=== PATIENT | male | born 1980 | race Caucasian/White ===

== ENCOUNTER 2017-05-11 17:38 | Emergency (ER) | payer SELFPAY ==
[~2017-05-11] VITALS: Ht 170.2 cm; Wt 99.1 kg
[2017-05-11 18:07] VITALS: BP 118/69
[2017-05-11] MEDS ORDERED: IBUPROFEN 600 MG TAB PO STA (18:12)
[2017-05-11] MEDS ORDERED: ACETAMINOPHEN EXTRA STRENGTH 500 MG TAB PO STA (18:12)
[2017-05-11 19:11] LABS: APPEARANCE,URINE CLEAR (CLEAR); BILIRUBIN,URINE NEGATIVE (NEGATIVE); BLOOD, URINE NEGATIVE (NEGATIVE); COLOR,URINE YELLOW (YELLOW); LEUKOCYTE ESTERASE ,URINE NEGATIVE (NEGATIVE); NITRITE, URINE NEGATIVE (NEGATIVE); UGLUCOSE NEGATIVE (NEGATIVE)
[2017-05-11 19:35] LABS: BASOPHILS # (AUTO) 0.1 K/uL (0.00-0.22); BASOPHILS % (AUTO) 0.8 % (0.0-2.0); EOSINOPHILS # (AUTO) 0.2 K/uL (0-0.4); EOSINOPHILS % (AUTO) 1.8 % (0.0-4.0); HEMATOCRIT 46.3 % (36-52); HEMOGLOBIN 15.7 g/dL (12.0-18.0); LYMPHOCYTES # (AUTO) 1.2 K/uL (2.0-11.5); LYMPHOCYTES % (AUTO) 9.1 % (20.5-51.1); MEAN CORPUSCULAR HEMOGLOBIN 29 pg (27-31); MEAN CORPUSCULAR HGB CONC 34 g/dL (33-37); MEAN CORPUSCULAR VOLUME 85 fL (80-94); MONOCYTES # (AUTO) 0.5 K/uL (0.8-1.0); NEUTROPHILS # (AUTO) 11.7 K/uL (1.8-7.7); NEUTROPHILS % (AUTO) 84.3 % (42.2-75.2); PLATELET COUNT (AUTO) 180 K/uL (140-450); RED BLOOD CELL COUNT(AUTO) 5.44 MIL/uL (4.20-6.10); RED CELL DISTRIBUTION WIDTH 11.8 % (11.6-13.7); WHITE BLOOD COUNT (AUTO) 13.7 K/uL (4.8-10.8)
[2017-05-11 19:43] LABS: ANION GAP 15.9 (8-16); CARBON DIOXIDE 23.9 mmol/L (21-32); CREATININE 1.3 mg/dL (0.7-1.3); POTASSIUM 3.8 mmol/L (3.5-5.1)
[2017-05-11 20:00] LABS: ALBUMIN 4.1 g/dL (3.4-5.0); TOTAL BILIRUBIN 0.4 mg/dL (0.0-1.0)
--- NOTE | 2017-05-11 20:45 | NUR ---
36Y M BIB FAMILTY C/O COUGH, CONGESTION, FEVER CHILLS, BODYACHES, FATIGUE X 3 DAYS TAKING ASA AND TEAS HX---HYPERLIPIDEMIA RX---GEMFIBROZIL
--- NOTE | 2017-05-11 20:47 | NUR ---
Patient being evaluated by physician at bedside.
[2017-05-11 20:57] VITALS: BP 136/71
--- NOTE | 2017-05-11 20:57 | NUR ---
Patient discharged with v/s stable. Written and verbal after care instructions given and explained BY DR DECKER. Patient alert, oriented and verbalized understanding of instructions BY DR DECKER. Ambulatory with steady gait. All questions addressed prior to discharge BY DR DECKER. ID band removed. Patient advised to follow up with PMD. Rx of ROBITUSSIN DM, AUGMENTIN 875 given. Patient educated on indication of medication including possible reaction and side effects. Opportunity to ask questions provided and answered BY DR DECKER.
--- NOTE | 2017-05-11 20:58 | NUR ---
MEDICATIONS WERE NOT GIVEN, DR DECKER DISCHARGED PT PERSONALLY, ER MD DR DECKER MADE AWARE
== END 2017-05-11 20:57 | disposition home or self-care (01) ==
LOC: MED 17:38
DX: J02.9 Acute pharyngitis, unspecified (principal); E78.5 Hyperlipidemia, unspecified
CPT/HCPCS: 36415; 71045; 80053; 81003; 83605; 85025; 87040; 99285